=== PATIENT | female | born 1995 | race African-American/Black ===

== ENCOUNTER 2017-02-10 20:35 | Emergency (ER) | payer OTHER ==
[2017-02-10] MEDS ORDERED: traMADol TAB* 50 MG PO ONE (23:04)
[2017-02-10] MEDS ORDERED: Cephalexin CAP* 500 MG PO ONE (23:04)
[2017-02-10] MEDS ORDERED: DOXYcycline CAP(*) 100 MG PO ONE (23:10)
--- NOTE | 2017-02-10 23:33 | ED ---
Skin Complaint - HPI Summary HPI Summary: Patient has a history of hidradenitis suppurativa and has developed several pustules in her left axilla. These episodes tend to occur around the time of menstration and typically resolve on their own. This time they progressed and are extremely painful. She is denies drainage, or fevers, but notices what looks like pus in two of the five "lumps". She has never been treated for these nor has she been referred to a specialist. - History of Current Complaint Chief Complaint: EDRashSkinAbscess Time Seen by Provider: 02/10/17 22:18 Stated Complaint: BOIL ON CHEST Hx Obtained From: Patient Onset/Duration: Started Days Ago, Atraumatic, Worse Since - two days ago Timing: Constant Onset Severity: Moderate Current Severity: Severe Pain Intensity: 10 Skin Location: Arm - left axilla Character: Swelling, Raised, Painful Aggravating Symptom(s): Touch Alleviating Symptom(s): Nothing Associated Signs & Symptoms: Tenderness - with mild erythema Related History: Other: - hidradenitis suppurativa - Allergy/Home Medications Allergies/Adverse Reactions: Allergies Allergy/AdvReac Type Severity Reaction Status Date / Time No Known Allergies Allergy Verified 02/10/17 21:45 PMH/Surg Hx/FS Hx/Imm Hx Previously Healthy: Yes Infectious Disease History: Yes Infectious Disease History: Denies: Traveled Outside the [place] in Last 30 Days - Family History Known Family History: Positive: None - Social History Occupation: Student Lives: Alone Alcohol Use: Rare Substance Use Type: Reports: None Smoking Status (MU): Never Smoked Tobacco Review of Systems Negative: Fever, Chills Positive: Other - multiple pustule in the left axilla All Other Systems Reviewed And Are Negative: Yes Physical Exam Triage Information Reviewed: Yes Vital Signs On Initial Exam: Initial Vitals Temp Pulse Resp BP Pulse Ox 97.7 F 76 14 133/71 100 02/10/17 21:42 02/10/17 21:42 02/10/17 21:42 02/10/17 21:42 02/10/17 21:42 Vital Signs Reviewed: Yes Appearance: Positive: Well-Appearing, Well-Nourished, Pain Distress Skin: Positive: Warm, Skin Color Reflects Adequate Perfusion, Dry, Soft, Erythema @ - Two 5 mm pustules and three pea sized areas of enduration with a mild erythematous base in the left axilla Head/Face: Positive: Normal Head/Face Inspection Eyes: Positive: EOMI, HENRIK, Conjunctiva Clear ENT: Positive: Hearing grossly normal Neck: Positive: Supple, Nontender Respiratory/Lung Sounds: Positive: Breath Sounds Present Cardiovascular: Positive: RRR Musculoskeletal: Positive: Strength/ROM Intact Neurological: Positive: Sensory/Motor Intact, Alert, Oriented to Person Place, Time, NV Bundle Intact Distally Psychiatric: Positive: Affect/Mood Appropriate AVPU Assessment: Alert Procedures - Incision and Drainage Site: left axilla Anesthesia: Other - none Instrument(s): Needle - two pustules were unroofed and cultures were obtained Packing: Other - open to drain Diagnostics - Vital Signs Vital Signs Temp Pulse Resp BP Pulse Ox 02/10/17 21:42 97.7 F 76 14 133/71 100 - Laboratory Lab Statement: Any lab studies that have been ordered have been reviewed, and results considered in the medical decision making process. Course/Dx - Differential Diagnoses - Skin Complaint Differential Diagnoses: Abscess, Allergic Reaction, Cellulitis, Contact Dermatitis, Local Allergic Reaction, MRSA, Viral Exanthem - Diagnoses Provider Diagnoses: Abscess of left axilla, Hidradenitis suppurativa of left axilla Discharge - Discharge Plan Condition: Stable Disposition: HOME Prescriptions: DOXYcycline CAP(*) [DOXYcycline 100MG CAP(*)] 100 mg PO BID #19 cap Ibuprofen TAB* [Motrin TAB* 600 MG] 600 mg PO Q8H PRN #30 tab PRN Reason: Pain traMADol TAB* [Ultram*] 50 mg PO Q6HR PRN #8 tab MDD 4 PRN Reason: Pain [facility]errals: [facility] [Primary Care Provider] - Additional Instructions: Please take the antibiotics prescribed until they are completely gone. Take Ibuprofen 600 mg three times daily with meals for the next 3-5 days to decrease swelling and pain. Take Tramadol as needed for pain. Apply warm compresses several times daily to encourage any drainage. Follow-up with [facility] if symptoms persist. Call your primary care provider at home for a referral to a surgeon if needed. Return to the emergency department if symptoms worsen.
[2017-02-10 23:38] VITALS: BP 136/74
== END 2017-02-10 23:37 | disposition home or self-care (01) ==
LOC: ED 20:35
DX: L02.412 Cutaneous abscess of left axilla (principal); L73.2 Hidradenitis suppurativa
CPT/HCPCS: 10060; 87070; 87205; 87640; 87641; 99282; A9270-GY